=== PATIENT | male | born 1955 | race Caucasian/White ===

== ENCOUNTER 2017-09-09 13:39 | Inpatient (IN) ==
[~2017-09-09 13:39] MED LIST: *HR* Atropine Sulfate 1 MG/10 ML SYRINGE IV ONE
[2017-09-09] MEDS ORDERED: Aspirin 81 MG TAB.CHEW PO ONE (13:46)
[2017-09-09] MEDS ORDERED: *HR* Heparin 5,000 UNIT/ML VIAL IVP ONE (13:46)
[2017-09-09] MEDS ORDERED: 0.9 % Sodium Chloride 1,000 ML IVC ONE (13:46)
[2017-09-09] MEDS ORDERED: *HR* Heparin 5,000 UNIT/ML VIAL IVP PRN ×2 (13:46)
[2017-09-09] MEDS ORDERED: *HR* Ticagrelor 90 MG TABLET PO ONE (13:46)
--- NOTE | 2017-09-09 13:54 | Emergency Department Note ---
Disposition Clinical Impression: STEMI (ST elevation myocardial infarction) Qualifiers: Involved coronary artery: right coronary artery Qualified Code(s): I21.11 - ST elevation (STEMI) myocardial infarction involving right coronary artery Disposition: Admitted As Inpatient Condition: Serious Time of Disposition: 13:56 Chest Pain HPI - General Chief Complaint: ED Chest Pain Stated Complaint: CP Time Seen by Provider: 09/09/17 13:43 Source: patient Mode of arrival: EMS Limitations: no limitations Vital Signs Reviewed: Yes Nursing Notes Reviewed: Yes - History of Present Illness HPI Narrative: Patient presenting to the ED with a chief complaint of chest pain. No previous history of CA. Started this morning about 7 AM, went away started again about an hour ago. Located central chest radiating to his left arm. Prehospital EKG concerning for STEMI, but significant noise in appearance. Upon arrival, repeat EKG here does show an inferior CA STEMI alert called. Severity scale (1-10): 9 - Related Data Home Medications Medication Instructions Recorded Confirmed Losartan Potassium [Cozaar] 100 mg PO DAILY 09/09/17 09/09/17 Ranitidine HCl [Heartburn Relief] 150 mg PO BID 09/09/17 09/09/17 hydroCHLOROthiazide 25 mg PO DAILY 09/09/17 09/09/17 [Hydrochlorothiazide] Allergies Allergy/AdvReac Type Severity Reaction Status Date / Time No Known Allergies Allergy Verified 04/20/17 10:33 Constitutional: Denies: fever Cardiovascular: Reports: chest pain Respiratory: Reports: cough. Denies: dyspnea Gastrointestinal: Denies: vomiting Chest Pain PMH - Past Medical History Medical history: Reports: COPD, GERD, hyperlipidemia, hypertension Surgical history: Reports: other Psychiatric history: Reports: no psych history - Social History Smoking Status: Current every day smoker Alcohol use: Reports: none Drug use: Reports: none Physical Exam - General Limitations: no limitations General appearance: alert, in no apparent distress - Head Head exam: atraumatic, normocephalic, normal inspection - Eye Eye exam: Present: normal appearance, PERRL, EOMI - ENT ENT exam: normal exam, normal oropharynx, mucous membranes moist - Neck Neck exam: Present: normal inspection, full ROM, trachea midline - Chest Chest inspection: Present: normal inspection, symmetric chest wall rise - Respiratory Respiratory exam: Present: normal lung sounds bilaterally - Cardiovascular Cardiovascular exam: Present: regular rate, normal rhythm, normal heart sounds - Abdominal Exam Abdominal exam: Present: soft, Non-Tender. Absent: tenderness, distention, guarding, rebound, rigidity - Extremities Exam Extremities exam: Present: normal inspection, full ROM. Absent: tenderness, pedal edema - Neurological Exam Neurological exam: Present: alert, oriented X3 - Psychiatric Psychiatric exam: Present: normal affect, normal mood - Skin Skin exam: Present: warm, dry, intact, normal color Course Course Narrative: 62-year-old male presenting as a STEMI. Bedside ultrasound did reveal a decrease and wall motion inferiorly as well as LVH. EF seems to be intact. We will get a quick chest x-ray before anticoagulating. - Consultations Consultation #1: power generation engineer down to the emergency department. Taking patient to the Party Coordinator at this time. Heparin Brilinta aspirin given. Time: 13:52 Vital Signs Temperature 97.9 F 09/09/17 13:41 Pulse Rate 83 09/09/17 13:41 Respiratory Rate 16 09/09/17 13:41 Blood Pressure 144/89 09/09/17 13:41 O2 Sat by Pulse Oximetry 99 09/09/17 13:41 Temperature 97.9 F 09/09/17 13:41 Pulse Rate 74 09/09/17 14:10 Respiratory Rate 14 09/09/17 14:10 Blood Pressure 154/107 09/09/17 14:10 O2 Sat by Pulse Oximetry 97 09/09/17 14:10 Oxygen Delivery Oxygen Delivery Nasal Cannula Chest Pain - Medical Records Medical records reviewed: Yes I reviewed the patient's medical records. - Lab Data Lab results reviewed: Yes I reviewed the patient's lab results. Result diagrams: 09/09/17 13:43 09/09/17 13:43 Lab Results 09/09/17 09/09/17 09/09/17 Range/Units 13:43 13:43 13:43 WBC 12.8 H (4.3-11.1) K/mcL RBC 5.24 (4.19-5.50) M/mcL Hgb 16.3 (12.9-16.9) g/dL Hct 47.3 (37.5-50.1) % MCV 90.3 (83.0-100.0) fL MCH 31.1 (28.0-33.3) pg MCHC 34.5 (31.6-35.5) g/dL RDW 12.8 (11.5-14.5) % Plt Count 270 (140-400) K/mcL MPV 10.2 (9.4-12.4) fL Immature Gran % 0.3 (0-4) % Seg Neutrophils % 61.1 % Lymphocytes % 27.3 % Monocytes % 7.6 % Eosinophils % 2.5 % Basophils % 1.2 % Neutrophils # 7.8 (1.6-8.9) K/mcL Lymphocytes # 3.5 (0.6-4.6) K/mcL Monocytes # 1.0 (0.0-1.3) K/mcL Eosinophils # 0.3 (0.0-0.6) K/mcL Basophils # 0.2 (0.0-0.2) K/mcL PT 11.4 (9.4-12.1) Seconds INR 1.1 APTT 26.5 (26.0-36.0) Seconds Sodium 133 L (136-145) mEq/L Potassium 3.8 (3.5-4.5) mEq/L Chloride 93 L (98-109) mEq/L Carbon Dioxide 29 (19-29) mEq/L BUN 13 (8-26) mg/dL Creatinine 1.09 (0.72-1.25) mg/dL Est GFR ( Amer) > 60 (> 60) Est GFR (Non-Af Amer) > 60 (> 60) BUN/Creatinine Ratio 12 (6-26) Glucose 139 H (70-99) mg/dL Calculated Osmolality 278 L (280-300) Calcium 10.3 (8.6-10.8) mg/dL Magnesium 1.7 (1.6-2.6) mg/dL Troponin I (0-0.03) ng/mL Triglycerides 107 (< 150) mg/dL Cholesterol 205 H (< 200) mg/dL LDL Cholesterol, Calc 128 H (0-99) mg/dL VLDL Cholesterol, Calc 21 (< 31) mg/dL HDL Cholesterol 56 (40-59) mg/dL Cholesterol/HDL Ratio 3.7 (0-4.9) 09/09/17 Range/Units 13:43 WBC (4.3-11.1) K/mcL RBC (4.19-5.50) M/mcL Hgb (12.9-16.9) g/dL Hct (37.5-50.1) % MCV (83.0-100.0) fL MCH (28.0-33.3) pg MCHC (31.6-35.5) g/dL RDW (11.5-14.5) % Plt Count (140-400) K/mcL MPV (9.4-12.4) fL Immature Gran % (0-4) % Seg Neutrophils % % Lymphocytes % % Monocytes % % Eosinophils % % Basophils % % Neutrophils # (1.6-8.9) K/mcL Lymphocytes # (0.6-4.6) K/mcL Monocytes # (0.0-1.3) K/mcL Eosinophils # (0.0-0.6) K/mcL Basophils # (0.0-0.2) K/mcL PT (9.4-12.1) Seconds INR APTT (26.0-36.0) Seconds Sodium (136-145) mEq/L Potassium (3.5-4.5) mEq/L Chloride (98-109) mEq/L Carbon Dioxide (19-29) mEq/L BUN (8-26) mg/dL Creatinine (0.72-1.25) mg/dL Est GFR ( Amer) (> 60) Est GFR (Non-Af Amer) (> 60) BUN/Creatinine Ratio (6-26) Glucose (70-99) mg/dL Calculated Osmolality (280-300) Calcium (8.6-10.8) mg/dL Magnesium (1.6-2.6) mg/dL Troponin I 0.08 H* (0-0.03) ng/mL Triglycerides (< 150) mg/dL Cholesterol (< 200) mg/dL LDL Cholesterol, Calc (0-99) mg/dL VLDL Cholesterol, Calc (< 31) mg/dL HDL Cholesterol (40-59) mg/dL Cholesterol/HDL Ratio (0-4.9) - Radiology Data Radiology results reviewed: Yes I reviewed the patient's radiology results. - EKG Data EKG attestation: Yes I reviewed and interpreted this EKG. EKG results narrative: EKG shows sinus rhythm with first-degree AV block, rate 63, SC interval 247, QRS 101, QTc 386, ST segment elevation in leads II, III, and F aVF with reciprocal ST segment depression in V1, V2 and V3. This is significantly changed from previous. ACUTE CA. STEMI CALLED Attestation Statement - Attestation Attestation: I examined this patient and my medical decision-making was reviewed with the Resident Physician, Dr. Guzman. I agree with the documented findings, disposition and treatment plan as described except to the extent set forth below. Patient is a 62-year-old white male with history of hypertension and smoker who presents to the emergency department by EMS with complaints of substernal chest pain. Patient states pain began at about 7 AM and spontaneously resolved and then recurred an hour ago associated with some mild shortness of breath. Patient states the pain is radiating into his left arm. Patient denies any prior history of cardiac disease or CA. EMS transmitted an EKG minutes before they arrived to the ED with questionable ST changes in the inferior leads but difficult to ascertain as there was a lot of artifact on the tracing. On arrival to the ED EKG was repeated and show ST elevation in the inferior leads consistent with an inferior CA with reciprocal changes. STEMI alert was called on arrival. Patient is hemodynamically stable at this time. Patient did receive 4 baby aspirin in route to the ED. I agree with patient's physical exam findings as documented. Vital chest x-ray showed no acute process normal-sized mediastinum and cardiac silhouette. Dr. Chew who is on-call for interventional cardiology came to bedside to evaluate the patient. He agrees with proceeding with taking the patient to the Party Coordinator. IV heparin and Brilinta were started in the ED and patient was transported in stable condition to the Party Coordinator. Labs had been drawn and sent while in the ED. Patient will be admitted to the ICU from the Party Coordinator.
[2017-09-09 13:56] LABS: Basophils # 0.2 K/mcL (0.0-0.2); Basophils % 1.2 %; Eosinophils # 0.3 K/mcL (0.0-0.6); Eosinophils % 2.5 %; Hematocrit 47.3 % (37.5-50.1); Hemoglobin 16.3 g/dL (12.9-16.9); Immature Granulocytes % 0.3 % (0-4); Lymphocytes # 3.5 K/mcL (0.6-4.6); Lymphocytes % 27.3 %; Mean Corpuscular HGB Conc 34.5 g/dL (31.6-35.5); Mean Corpuscular Hemoglobin 31.1 pg (28.0-33.3); Mean Corpuscular Volume 90.3 fL (83.0-100.0); Mean Platelet Volume 10.2 fL (9.4-12.4); Monocytes % 7.6 %; Neutrophils # 7.8 K/mcL (1.6-8.9); Platelet Count 270 K/mcL (140-400); Red Blood Count 5.24 M/mcL (4.19-5.50); Red Cell Distribution Width 12.8 % (11.5-14.5); Segmented Neutrophils % 61.1 %
[2017-09-09 14:00] LABS: INR 1.1; Prothrombin Time 11.4 Seconds (9.4-12.1)
[2017-09-09] MEDS ORDERED: Heparin 25,000 UNIT/500 ML D5W 25,000 UNIT/500 ML MLS IVC SCH (14:00)
[2017-09-09] MEDS ORDERED: Heparin 1,000 UNITS/500 mL NS 500 ML ONE (14:01)
[2017-09-09] MEDS ORDERED: Nitroglycerin 1,000 MCG/10 ML VIAL IV ONE (14:01)
[2017-09-09] MEDS ORDERED: 0.9 % Sodium Chloride 1,000 ML ONE (14:01)
[2017-09-09] MEDS ORDERED: *HR* FentaNYL (PF) 100 MCG/2 ML VIAL ONE (14:01)
[2017-09-09] MEDS ORDERED: *HR* Midazolam HCl 2 MG/2 ML VIAL ONE (14:01)
[2017-09-09] MEDS ORDERED: *HR* Heparin 10,000 UNIT/10 ML VIAL ONE (14:01)
[2017-09-09 14:02] LABS: Activated Partial Thrombo Time 26.5 Seconds (26.0-36.0)
--- NOTE | 2017-09-09 14:07 | Cardiology History & Physical ---
Date of Encounter: 09/09/17 Time of Encounter: 14:05 Assessment and Plan (1) STEMI (ST elevation myocardial infarction) Current Visit: Yes Status: Acute The assessment and plan as outlined above was discussed with the patient and/or family members who expressed understanding and agreement. All questions were answered. Inferior STEMI, R/B/A d/w pt and he agrees to proceed. Loaded on Brilinta/ASA and Heparin Qualifiers: Involved coronary artery: right coronary artery Qualified Code(s): I21.11 - ST elevation (STEMI) myocardial infarction involving right coronary artery Code(s): I21.3 - ST elevation (STEMI) myocardial infarction of unspecified site SNOMED Code(s): 559988836 History of Present Illness Chief complaint: Chest Pain HPI: Mr. Centeno is a 62 year old male 62 YOM with h/o HTN, HLP presents with chest pain starting one hour ago unrelenting 6/10 retrosternal associated with SOB, EKG reveals Inferior ST elevations. R/B/A d/w pt and he agrees to proceed with [facility]. Denies orthopne, PND , presyncope or syncope. Past Med Surg Social Fam HX - Past Medical History Medical history: COPD, GERD, hyperlipidemia, hypertension Psychiatric history: no psych history - Past Surgical History Surgical History: other - Social History Smoking Status: Current every day smoker Smokeless Tobacco Status: No Alcohol use: none Drug use: none Medications and Allergies Losartan Potassium [Cozaar] 100 mg PO DAILY 09/09/17 [History] Ranitidine HCl [Heartburn Relief] 150 mg PO BID 09/09/17 [History] hydroCHLOROthiazide [Hydrochlorothiazide] 25 mg PO DAILY 09/09/17 [History] 3 Allergy/AdvReac Type Severity Reaction Status Date / Time No Known Allergies Allergy Verified 04/20/17 10:33 All Systems Review: A 10-system review of systems was performed and is negative for pertinent findings except as documented above in the HPI. Physical Examination Vital Signs, Last 4 Hours Temp Pulse Resp BP Pulse Ox 09/09/17 13:56 73 18 149/95 99 09/09/17 13:41 97.9 F 83 16 144/89 99 General: Conversant, No Apparent Distress HEENT: Atraumatic, Normocephaly, Mucus Membranes Moist Neck: No JVD, Normal carotid pulses Cardiac: Reg Rate and Rhythm, Normal S1 and S2, No Murmur Lungs: Normal Breath Sounds, No Wheeze, Rales, Rhonchi Neuro: Alert and responsive, No focal deficits noted Abdomen: Soft, Non-Tender Skin: No rashes noted on visualized skin Musculoskeletal: No Chest Wall Tenderness Extremities: No Clubbing, No Cyanosis, No Edema, Normal Pulses Results 09/09/17 13:43 Lab Results 09/09/17 09/09/17 13:43 13:43 WBC 12.8 H Hgb 16.3 Hct 47.3 Plt Count 270 INR 1.1
[2017-09-09 14:10] LABS: BUN/Creatinine Ratio 12 (6-26); Blood Urea Nitrogen 13 mg/dL (8-26); Calcium 10.3 mg/dL (8.6-10.8); Carbon Dioxide 29 mEq/L (19-29); Chloride 93 mEq/L (98-109); Chol/HDL Ratio 3.7 (0-4.9); Cholesterol 205 mg/dL (< 200); Glucose 139 mg/dL (70-99); HDL Cholesterol 56 mg/dL (40-59); LDL Cholesterol,Calculated 128 mg/dL (0-99); Magnesium 1.7 mg/dL (1.6-2.6); Osmolality,Calculated 278 (280-300); Potassium 3.8 mEq/L (3.5-4.5); Sodium 133 mEq/L (136-145); Triglycerides 107 mg/dL (< 150); eGFR For African Americans > 60 (> 60); eGFR For Non-African Americans > 60 (> 60)
[2017-09-09] MEDS ORDERED: Tirofiban 12.5 MG/250ML 12.5 MG/250 ML BAG ONE (14:26)
[2017-09-09] MEDS ORDERED: Tirofiban 12.5 MG/250ML 12.5 MG/250 ML BAG IVC SCH (15:30)
[2017-09-09] MEDS ORDERED: *HR* Atropine Sulfate 1 MG/10 ML SYRINGE ONE (18:04)
[2017-09-10] MEDS ORDERED: *HR* Morphine 2 MG/ML SYRINGE IVP PRN (00:10)
[2017-09-10] MEDS ORDERED: Nitroglycerin 0.2 MG PATCH.TD24 TD SCH ×2 (00:30→07:30)
[2017-09-10 03:46] LABS: Basophils # 0.1 K/mcL (0.0-0.2); Basophils % 0.4 %; Eosinophils % 0.2 %; Hematocrit 43.6 % (37.5-50.1); Hemoglobin 14.8 g/dL (12.9-16.9); Immature Granulocytes % 0.5 % (0-4); Lymphocytes # 1.6 K/mcL (0.6-4.6); Lymphocytes % 9.7 %; Mean Corpuscular HGB Conc 33.9 g/dL (31.6-35.5); Mean Corpuscular Hemoglobin 30.5 pg (28.0-33.3); Mean Corpuscular Volume 89.7 fL (83.0-100.0); Mean Platelet Volume 10.4 fL (9.4-12.4); Monocytes # 1.3 K/mcL (0.0-1.3); Monocytes % 7.9 %; Neutrophils # 13.1 K/mcL (1.6-8.9); Platelet Count 257 K/mcL (140-400); Red Blood Count 4.86 M/mcL (4.19-5.50); Red Cell Distribution Width 12.9 % (11.5-14.5); Segmented Neutrophils % 81.3 %
[2017-09-10 03:54] LABS: Hemoglobin A1C 5.2 %
[2017-09-10 04:00] LABS: Alanine Aminotransferase 55 Units/L (0-55); Albumin 3.4 g/dL (3.5-5.0); Alkaline Phosphatase 109 Units/L (38-126); Aspartate Amino Transferase 275 Units/L (5-34); BUN/Creatinine Ratio 17 (6-26); Bilirubin,Direct 0.3 mg/dL (0.0-0.5); Bilirubin,Indirect 0.4 mg/dL (0.0-1.2); Bilirubin,Total 0.7 mg/dL (0.2-1.2); Blood Urea Nitrogen 14 mg/dL (8-26); Calcium 9.3 mg/dL (8.6-10.8); Carbon Dioxide 28 mEq/L (19-29); Chloride 97 mEq/L (98-109); Globulin 3.4 g/dL (2.4-3.5); Glucose 111 mg/dL (70-99); Magnesium 1.6 mg/dL (1.6-2.6); Osmolality,Calculated 273 (280-300); Potassium 4.1 mEq/L (3.5-4.5); Sodium 131 mEq/L (136-145); Total Protein 6.8 g/dL (6.0-8.3); eGFR For African Americans > 60 (> 60); eGFR For Non-African Americans > 60 (> 60)
[2017-09-10] MEDS: *HR* Ticagrelor 90 MG TABLET PO SCH ×3 (07:52→19:46)
[2017-09-10] MEDS ORDERED: Furosemide 20 MG/2 ML VIAL IVP ONE (08:06)
[2017-09-10] MEDS ORDERED: Aspirin 81 MG TAB.CHEW PO SCH (09:00)
[2017-09-10] MEDS ORDERED: Levalbuterol Neb 1.25 MG/3 ML IH SCH (10:00)
--- NOTE | 2017-09-10 10:41 | Cardiology Progress Note ---
Date of Encounter: 09/10/17 Time of Encounter: 09:00 Assessment and Plan (1) STEMI (ST elevation myocardial infarction) Current Visit: Yes Status: Acute Per Cardiology: Trop 0.08. Status post emergent left heart catheterization with PCI and drug- eluting stent to right PDA 100% lesion; has nonobstructive proximal LAD 25% and mid LAD 25% lesions. EF on LHC 65%. Echo pending. Has Cardiac rehab c/s. On aspirin, statin, Brilinta (copay card provided), TASNEEM inhibitor. Will add low dose BB-- HR and BP stable. Plan for transfer to floor today, possible DC tomorrow. Qualifiers: Involved coronary artery: right coronary artery Qualified Code(s): I21.11 - ST elevation (STEMI) myocardial infarction involving right coronary artery (2) Nicotine abuse Current Visit: Yes Status: Chronic Per Cardiology: History of one pack per day for 46 years, currently smoking a half a pack per day. Smoking cessation counseling for 3-5 minutes provided. Patient is not interested in smoking cessation aids at this time. Discussion w patient/family: The assessment and plan as outlined above was discussed with the patient who expressed understanding and agreement. All questions were answered. Thank you for involving us in the care of your patient. Please call with any questions. Subjective Principal diagnosis: STEMI Interval history: Patient denies CP. Reports mild SOB at rest-- does not utilize home O2. He reports no known history of COPD. Continues to smoke about half a pack per day, has smoked about one pack per day for 46 years. Denies any R groin concerns other than mild tenderness. Objective Vital Signs, Last 4 Hours Temp Pulse Resp BP Pulse Ox 09/10/17 10:00 77 26 127/85 94 09/10/17 09:00 76 24 114/81 96 09/10/17 08:00 62 22 110/69 96 09/10/17 07:42 98.1 F General: Conversant, No Apparent Distress HEENT: Atraumatic, Normocephaly, Mucus Membranes Moist Neck: No JVD, Normal carotid pulses Cardiac: Reg Rate and Rhythm, Normal S1 and S2, No Murmur Lungs: Normal Breath Sounds, No Wheeze, Rales, Rhonchi Neuro: Alert and responsive, No focal deficits noted Abdomen: Soft, Non-Tender Skin: No rashes noted on visualized skin, Other (Right groin site trying intact , no hematoma, no ecchymosis, no bleeding, right posterior tibial and dorsalis pedis pulses 2+ palpable) Musculoskeletal: No Chest Wall Tenderness Extremities: No Clubbing, No Cyanosis, No Edema, Normal Pulses Results 09/10/17 03:24 09/10/17 03:24 Lab Results Laboratory Tests 09/09/17 13:43 Troponin I 0.08 H* ITS Impressions Chest X-Ray 09/09/17 13:46 IMPRESSION: No acute cardiopulmonary disease. D/ / Biju Araujo MD / Biju Araujo MD Interpreting Provider: Biju Araujo MD Active Medications Aspirin (Aspirin) 81 mg PO DAILY [facility] Stop: 03/12/18 09:01 Last Admin: 09/10/17 07:52 Dose: 81 mg Atorvastatin Calcium (Lipitor) 40 mg PO HS [facility] Stop: 03/11/18 21:01 Last Admin: 09/09/17 20:32 Dose: 40 mg Levalbuterol HCl (Xopenex) 1.25 mg IH [id number] [facility] Stop: 03/12/18 10:01 Lisinopril (Zestril) 2.5 mg PO DAILY [facility] Stop: 03/12/18 09:01 Last Admin: 09/10/17 07:52 Dose: 2.5 mg Morphine Sulfate (Morphine Sulfate) 1 mg IVP Q2H PRN PRN Reason: Pain Stop: 03/12/18 00:11 Last Admin: 09/10/17 00:33 Dose: 1 mg Nitroglycerin (Nitroglycerin) 0.2 mg TD 0030 [facility] Stop: 03/12/18 00:31 Last Admin: 09/10/17 02:24 Dose: 0.2 mg Ticagrelor (Brilinta) 90 mg PO BID [facility] Last Admin: 09/10/17 08:14 Dose: Not Given - Imaging and Cardiology Echo: pending Cardiac cath: report reviewed - EKG Interpretation EKG results cardiology: other (Tele shows avg HR 75, SR, few episodes on NSVT) - VTE Reasons for not Prescribing Prophylaxis: Not indicated-Anticoagulated or INR therapeutic Consult Discharge Plan - Plan Referrals: Kaila Arciniega, [Primary Care Provider] -
[2017-09-10] MEDS ORDERED: Acetaminophen 325 MG TABLET PO PRN ×2 (10:59→13:54)
[2017-09-10] MEDS ORDERED: Magnesium Sulfate 2 GM in D5% in Water 100 ML IVPB ONE (11:00)
[2017-09-10] MEDS ORDERED: Nitroglycerin 0.4 MG TAB.SUBL SL PRN (13:54)
[2017-09-10] MEDS: Levalbuterol Neb 1.25 MG/3 ML IH SCH ×2 (16:36→21:22)
--- NOTE | 2017-09-10 17:19 | Electrocardiograph Report ---
[address] [place] [address] Test Date: 2017-09-10 Pat Name: Jaret Centeno Department: 109 Room: 06 Gender: M Patient Registration Supervisor: MARY : 1955 Requested By: Jeevan Chew Order Number: [id number] Reading MD: Lizabeth Larson Measurements Intervals Mobile Rate: 67 P: 71 NV: 207 QRS: 59 QRSD: 85 T: -65 QT: 377 QTc: 393 Interpretive Statements SINUS RHYTHM WITH OCCASIONAL VENTRICULAR PREMATURE COMPLEXES ANTEROSEPTAL MYOCARDIAL INFARCTION, OF INDETERMINATE AGE MODERATE T-WAVE ABNORMALITY, CONSIDER INFERIOR ISCHEMIA Electronically Signed On 09-10-2017 17:18:02 EDT by Lizabeth Larson
--- NOTE | 2017-09-10 17:22 | Electrocardiograph Report ---
[address] [place], [place] [address] Test Date: 2017-09-09 Pat Name: Jaret Centeno Department: 102 Room: [facility] Gender: M Feeder/Folder: Pari : 1955 Requested By: Miller Guzman Order Number: [id number] Reading MD: Lizabeth Larson Measurements Intervals [place] Rate: 63 P: 68 TN: 247 QRS: 71 QRSD: 101 T: 87 QT: 378 QTc: 386 Interpretive Statements SINUS RHYTHM WITH FIRST DEGREE AV BLOCK BLOCKED PAC ANTEROSEPTAL MYOCARDIAL INFARCTION OF INDETERMINATE AGE ST ELEVATION, CONSIDER INFERIOR INJURY ACUTE IL Electronically Signed On 09-10-2017 17:20:55 EDT by Lizabeth Larson
[2017-09-10] MEDS: Famotidine 20 MG TABLET PO SCH (19:46)
[2017-09-11] MEDS: Levalbuterol Neb 1.25 MG/3 ML IH SCH ×3 (03:46→15:09)
[2017-09-11] MEDS: *HR* Ticagrelor 90 MG TABLET PO SCH ×2 (08:35→19:30)
[2017-09-11] MEDS: Famotidine 20 MG TABLET PO SCH ×2 (08:36→19:30)
[2017-09-11] MEDS: Aspirin 81 MG TAB.CHEW PO SCH (08:36)
--- NOTE | 2017-09-11 14:24 | Cardiology Progress Note ---
Date of Encounter: 09/11/17 Time of Encounter: 09:00 Assessment and Plan (1) STEMI (ST elevation myocardial infarction) Current Visit: Yes Status: Acute Per Cardiology: Peak troponin greater than 50. Status post emergent left heart catheterization with PCI and drug-eluting stent to right PDA 100% lesion; has nonobstructive proximal LAD 25% and mid LAD 25% lesions. Echo shows EF preserved at 60%, mild diastolic dysfunction, mild MR, no pulmonary hypertension. On aspirin, statin, Brilinta, BB, ARB. Chest pain-free. Qualifiers: Involved coronary artery: right coronary artery Qualified Code(s): I21.11 - ST elevation (STEMI) myocardial infarction involving right coronary artery (2) SOB (shortness of breath) Current Visit: Yes Status: Acute Per Cardiology: BNP only 18. Euvolemic on exam. Patient started on Xopenex nebulizers on admission. History of nicotine abuse. Suspect undiagnosed COPD. Patient reports continues to experience worsening shortness of breath at rest. Reports cough with whitish sputum production. White count noted to be elevated at 16. Afebrile. Previous CXR showed no acute pulmonary process. Discussed with Dr. Ferguson, will consult pulmonology for further evaluation and recommendations. (3) Nicotine abuse Current Visit: Yes Status: Chronic Per Cardiology: History of one pack per day for 46 years, currently smoking a half a pack per day. Smoking cessation counseling for 3-5 minutes provided. Patient is not interested in smoking cessation aids at this time. Discussion w patient/family: The assessment and plan as outlined above was discussed with the patient who expressed understanding and agreement. All questions were answered. Thank you for involving us in the care of your patient. Please call with any questions. Subjective Principal diagnosis: STEMI Interval history: Denies any chest pain. He reports he continues to experience shortness of breath at rest. Additionally he reports development of cough with mainly whitish sputum. He denies any fever or chills. Reports history of intermittent cough. Again significant history of nicotine abuse. He denies any known history of COPD and does not utilize home oxygen. Reports nebulizers improving his symptoms. Denies any other concerns or complaints today. Objective Vital Signs, Last 4 Hours Temp Pulse Resp BP Pulse Ox 09/11/17 11:11 94 09/11/17 11:10 97.8 F 85 18 136/96 96 General: Conversant, No Apparent Distress Cardiac: Reg Rate and Rhythm, Normal S1 and S2, No Murmur Lungs: Other (Scattered rhonchi throughout, expiratory wheezes noted bilateral bases, sounds to right base) Neuro: Alert and responsive, No focal deficits noted Skin: No rashes noted on visualized skin, Other (Right groin site for any intact , no hematoma, no bleeding, no ecchymosis) Extremities: No Edema Results 09/10/17 03:24 09/10/17 03:24 Laboratory Tests 09/09/17 09/09/17 09/09/17 13:43 13:43 15:46 Troponin I 0.08 H* B-Natriuretic Peptide 18 LDL Cholesterol, Calc 128 H TSH 09/10/17 09/10/17 03:24 10:59 Troponin I > 50.00 H* B-Natriuretic Peptide LDL Cholesterol, Calc TSH 0.980 ITS Impressions Chest X-Ray 09/09/17 13:46 IMPRESSION: No acute cardiopulmonary disease. D/ / Biju Araujo MD / Biju Araujo MD Interpreting Provider: Biju Araujo MD Echocardiogram 09/10/17 15:18 Impressions: LVEF 60%. Normal LV systolic function without regional wall motion abnormalities. Mild left ventricular diastolic dysfunction. Normal right ventricular structure and function. Mild mitral regurgitation. No pulmonary hypertension. Left Ventricular Wall Motion: Rest Echo Findings All wall segments showed normal motion. Findings: Study Quality * Technically adequate study. ECG Findings * Normal sinus rhythm, sinus arrhythmia and PACs. Left Ventricle * LVEF 60%. * Mild left ventricular diastolic dysfunction. * Normal size and LV wall thickness. Right Ventricle * Normal right ventricular structure and function. Left Atrium * Normal left atrial size. Right Atrium * Normal right atrial size. Aortic Valve * Aortic valve not well visualized. * No aortic regurgitation. * No aortic stenosis. Mitral Valve * Normal mitral valve structure. * No mitral stenosis. * Mild mitral regurgitation. Tricuspid Valve * Tricuspid valve not well visualized. * No tricuspid regurgitation. * Estimated RA pressure is 3 mmHg. Pulmonic Valve * Pulmonic valve is not well visualized. * No pulmonic stenosis. * No pulmonic regurgitation. Pulmonary Artery * Pulmonary artery not well visualized. Aorta * Normally sized aortic root. Pericardium * There is no pericardial effusion present. Interatrial Septum * No evidence of PFO by color Doppler. IVC * Normal IVC dimensions and inspiratory collapse. Active Medications Acetaminophen (Tylenol) 650 mg PO Q6HR PRN PRN Reason: Headache Stop: 03/12/18 11:00 Aspirin (Aspirin) 81 mg PO DAILY [facility] Stop: 03/12/18 09:01 Last Admin: 09/11/17 08:36 Dose: 81 mg Atorvastatin Calcium (Lipitor) 40 mg PO HS [facility] Stop: 03/11/18 21:01 Last Admin: 09/10/17 19:46 Dose: 40 mg Famotidine (Pepcid) 20 mg PO BID [facility] Stop: 03/12/18 21:01 Last Admin: 09/11/17 08:36 Dose: 20 mg Levalbuterol HCl (Xopenex) 1.25 mg IH [id number] [facility] Stop: 03/12/18 10:01 Last Admin: 09/11/17 10:13 Dose: 1.25 mg Losartan Potassium (Cozaar) 100 mg PO DAILY [facility] Stop: 03/13/18 09:01 Last Admin: 09/11/17 08:36 Dose: 100 mg Metoprolol Tartrate (Lopressor) 12.5 mg PO BID [facility] Stop: 03/12/18 21:01 Last Admin: 09/11/17 08:36 Dose: 12.5 mg Nitroglycerin (Nitroglycerin) 0.4 mg SL Q5MIN PRN PRN Reason: Chest Pain Stop: 03/12/18 13:55 Ticagrelor (Brilinta) 90 mg PO BID [facility] Last Admin: 09/11/17 08:35 Dose: 90 mg - Imaging and Cardiology Echo: report reviewed Cardiac cath: report reviewed - EKG Interpretation EKG results cardiology: other (Telemetry reviewed and shows sinus rhythm with average heart rate 91, occasional PVCs, no events noted) - VTE Reasons for not Prescribing Prophylaxis: Not indicated-Anticoagulated or INR therapeutic Documentation of Mechanical Device: Intermittent pneumatic compression device Consult Discharge Plan - Plan Referrals: Martha Benton DO [Resident] - 09/17/17 3:00 pm
[2017-09-11] MEDS ORDERED: Azithromycin 250 MG TABLET PO ONE (16:22)
--- NOTE | 2017-09-11 16:30 | Pulmonology Consult Note ---
<Michael Bruno - Last Filed: 09/11/17 16:39> Date of Encounter: 09/11/17 Time of Encounter: 16:28 Assessment and Plan (1) Acute exacerbation of chronic obstructive pulmonary disease (COPD) Current Visit: Yes Status: Acute Patient has never been formally diagnosed with COPD but given his smoking history and symptomatology likely has undiagnosed COPD with current exacerbation. Exacerbation is likely related to recent MT. We will start the patient on oral prednisone 40 mg daily and azithromycin 500 mg on day 1. Agree with short acting bronchodilators, will change patient from Xopenex to albuterol. We will also start long-acting antimuscarinic, Spiriva 18 g 1 puff daily. Also, given patient is now having yellow sputum we will also place an order for a sputum culture. Recommendations on discharge: Prednisone 40 mg daily for a total of 5 days Azithromycin 500 mg on day 1 and then 250 mg daily for 4 days for a total of 5 days of treatment. Albuterol inhaler 1 puff every 4 hours as needed for shortness of breath Spiriva 18 g inhaled, 1 puff daily We recommend the patient be set up with outpatient PFTs in 4 weeks after completing treatment. Follow-up with [facility] as an outpatient in 6-8 weeks. Thank you for consulting [facility]. Please call with any questions. (2) STEMI (ST elevation myocardial infarction) Current Visit: Yes Status: Acute Status post PCI to the LAD with drug-eluting stent. Likely contributing to the patient's COPD exacerbation as discussed above. Further management per the primary cardiology service. Qualifiers: Involved coronary artery: right coronary artery Qualified Code(s): I21.11 - ST elevation (STEMI) myocardial infarction involving right coronary artery History of Present Illness Consult date: 09/11/17 Requesting physician: Tereso Beckman Reason for consult: COPD Chief complaint: Dyspnea History of present illness: Patient is a 62-year-old male who initially presented to emergency department with chest pain. He was found to have an ST elevation myocardial infarction and underwent left heart catheterization with stent to the LAD. The pulmonology service was asked to see the patient due to worsening shortness of breath and cough. Patient reports that he has felt short of breath since admission. He states that he has felt short of breath intermittently prior to this. He states that this is worse since admission. He also reports increased sputum production in his sputum was initially white and is now become yellow. He denies fever, chills, hemoptysis, weight loss. Patient reports smoking since he was 16 years old. He states at most he smoked a pack and a half a day. Currently he smokes approximately half a pack of cigarettes daily. 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 He denies any history of tuberculosis exposure. Past Med Surg Social Fam HX - Past Medical History Medical history: COPD, GERD, hyperlipidemia, hypertension Psychiatric history: no psych history - Past Surgical History Surgical History: other - Social History Smoking Status: Current every day smoker Packs per day: 0.5 Smokeless Tobacco Status: No Alcohol use: none Drug use: none - Family History Mother Hx Family Respiratory Disorders: Yes Medications and Allergies Losartan Potassium [Cozaar] 100 mg PO DAILY 09/09/17 [History] Ranitidine HCl [Heartburn Relief] 150 mg PO BID 09/09/17 [History] hydroCHLOROthiazide [Hydrochlorothiazide] 25 mg PO DAILY 09/09/17 [History] 3 Allergy/AdvReac Type Severity Reaction Status Date / Time No Known Allergies Allergy Verified 04/20/17 10:33 All Systems: A 10-system review of systems was performed and is negative for pertinent findings except as documented above in the HPI. - Constitutional Constitutional: no chills, no fever(s) - EENT Nose, mouth and throat: no sore throat - Cardiovascular Cardiovascular: dyspnea, dyspnea on exertion, no chest pain - Respiratory Respiratory: cough, dyspnea on exertion, chest congestion, excessive phlegm production, change in phlegm color, no hemoptysis, no wheezing - Gastrointestinal Gastrointestinal: no nausea, no vomiting - Neurological Neurological: no numbness, no syncope, no tingling Physical Examination Vital Signs: Vital Signs, Last 4 Hours Temp Pulse Resp BP Pulse Ox 09/11/17 15:34 97.9 F 94 18 132/83 94 09/11/17 15:10 18 95 General appearance: no acute distress ENT: oropharynx moist Effort: normal Auscultation: bilateral: wheezes Cardiovascular: regular rate and rhythm Extremities: no cyanosis, no edema, no clubbing normal mental status, non-focal exam Results - Laboratory Findings CBC and BMP: 09/10/17 03:24 09/10/17 03:24 PT/INR, D-dimer PT 11.4 Seconds (9.4-12.1) 09/09/17 13:43 Abnormal lab findings: Abnormal lab results WBC 16.1 K/mcL (4.3-11.1) H 09/10/17 03:24 Neutrophils # 13.1 K/mcL (1.6-8.9) H 09/10/17 03:24 Sodium 131 mEq/L (136-145) L 09/10/17 03:24 Chloride 97 mEq/L (98-109) L 09/10/17 03:24 Glucose 111 mg/dL (70-99) H 09/10/17 03:24 Calculated Osmolality 273 (280-300) L 09/10/17 03:24 AST 275 Units/L (5-34) H 09/10/17 03:24 Troponin I > 50.00 ng/mL (0-0.03) H* 09/10/17 10:59 Albumin 3.4 g/dL (3.5-5.0) L 09/10/17 03:24 Albumin/Globulin Ratio 1.0 (1.1-2.2) L 09/10/17 03:24 Cholesterol 205 mg/dL (< 200) H 09/09/17 13:43 LDL Cholesterol, Calc 128 mg/dL (0-99) H 09/09/17 13:43 - Clinical Findings Intake & Output: Intake & Output 09/11/17 09/11/17 09/11/17 07:59 15:59 23:59 Intake Total 720 / 720 Output Total 200 / 200 825 / 825 Balance -200 / -200 -105 / -105 Weight 85 kg Consult Discharge Plan - Plan Referrals: Martha Benton DO [Resident] - 09/17/17 3:00 pm <Olman Mann - Last Filed: 09/11/17 18:33> Date of Encounter: 09/11/17 All Systems: A 10-system review of systems was performed and is negative for pertinent findings except as documented above in the HPI. Physical Examination Vital Signs: Vital Signs, Last 4 Hours Temp Pulse Resp BP Pulse Ox 09/11/17 15:34 97.9 F 94 18 132/83 94 09/11/17 15:10 18 95 Results - Laboratory Findings CBC and BMP: 09/10/17 03:24 09/10/17 03:24 PT/INR, D-dimer PT 11.4 Seconds (9.4-12.1) 09/09/17 13:43 Abnormal lab findings: Abnormal lab results WBC 16.1 K/mcL (4.3-11.1) H 09/10/17 03:24 Neutrophils # 13.1 K/mcL (1.6-8.9) H 09/10/17 03:24 Sodium 131 mEq/L (136-145) L 09/10/17 03:24 Chloride 97 mEq/L (98-109) L 09/10/17 03:24 Glucose 111 mg/dL (70-99) H 09/10/17 03:24 Calculated Osmolality 273 (280-300) L 09/10/17 03:24 AST 275 Units/L (5-34) H 09/10/17 03:24 Troponin I > 50.00 ng/mL (0-0.03) H* 09/10/17 10:59 Albumin 3.4 g/dL (3.5-5.0) L 09/10/17 03:24 Albumin/Globulin Ratio 1.0 (1.1-2.2) L 09/10/17 03:24 Cholesterol 205 mg/dL (< 200) H 09/09/17 13:43 LDL Cholesterol, Calc 128 mg/dL (0-99) H 09/09/17 13:43 - Clinical Findings Intake & Output: Intake & Output 09/11/17 09/11/17 09/11/17 07:59 15:59 23:59 Intake Total 720 / 720 240 / 240 Output Total 200 / 200 825 / 825 Balance -200 / -200 -105 / -105 240 / 240 Weight 85 kg - Attending Attestation I saw the patient with the resident agree with History and Physical exam findings. Labs and Radiology were reviewed Acute COPD Exacerbation : During the hospital stay complicated by STEMI clinical symptoms point towards to a COPD exacerbation which probably started during the hospitalization . Will start on Z santos and steroid burst . To send home on Albuterol inhaler and spiriva . To follow up with [facility] in 6 -8 weeks . To get PFT'S. Before discharge ascertain exercise O2 needs . Spent most of the visit time in counseling smoking cessation . Patient is contemplating to stop smoking.
[2017-09-11] MEDS: predniSONE 20 MG TABLET PO SCH (17:01)
--- NOTE | 2017-09-11 17:07 | Event Note ---
Date of Encounter: 09/11/17 Time of Encounter: 17:10 - Cardiology Event Note Patient discussed and reviewed with pulmonology, appreciate recommendations. Will reevaluate in the morning with possible discharge tomorrow.
[2017-09-11] MEDS: Tiotropium 18 MCG inhalation IH SCH (19:35)
[2017-09-11] MEDS: Albuterol 2.5 MG/3 ML NEBULIZER IH SCH ×2 (19:35→19:50)
[2017-09-12] MEDS: Albuterol 2.5 MG/3 ML NEBULIZER IH SCH ×4 (00:02→11:28)
[2017-09-12] MEDS: Tiotropium 18 MCG inhalation IH SCH (08:06)
--- NOTE | 2017-09-12 08:18 | Electrocardiograph Report ---
[place] [address] Test Date: 2017-09-09 Pat Name: Jaret Centeno Department: 109 Room: 2N09 Gender: M Bear Keeper: MARÍA : 1955 Requested By: Jeevan Chew Order Number: [id number] Reading MD: Lizabeth Larson Measurements Intervals [place] Rate: 71 P: 76 VT: 212 QRS: 66 QRSD: 87 T: 75 QT: 368 QTc: 391 Interpretive Statements SINUS RHYTHM WITH SINUS ARRHYTHMIA WITH FIRST DEGREE AV BLOCK ANTEROSEPTAL MYOCARDIAL INFARCTION, OF INDETERMINATE AGE Electronically Signed On 09-12-2017 8:16:45 EDT by Lizabeth Larson
[2017-09-12 08:20] VITALS: BP 132/78
[2017-09-12] MEDS: predniSONE 20 MG TABLET PO SCH (08:20)
[2017-09-12] MEDS: *HR* Ticagrelor 90 MG TABLET PO SCH (08:20)
[2017-09-12] MEDS: Famotidine 20 MG TABLET PO SCH (08:20)
[2017-09-12] MEDS: Aspirin 81 MG TAB.CHEW PO SCH (08:21)
--- NOTE | 2017-09-12 10:08 | Discharge Summary ---
Date of Encounter: 09/12/17 Time of Encounter: 10:00 - Discharge Diagnosis (1) STEMI (ST elevation myocardial infarction) Priority: Primary Status: Acute Comments: Presented with STEMI with troponin greater than 50. Qualifiers: Involved coronary artery: right coronary artery Qualified Code(s): I21.11 - ST elevation (STEMI) myocardial infarction involving right coronary artery (2) Acute exacerbation of chronic obstructive pulmonary disease (COPD) Priority: Secondary Status: Acute Comments: Seen by pulmonology with acute COPD exacerbation and started on antibiotics, steroids, and inhalers. (3) Nicotine abuse Priority: Secondary Status: Chronic - Discharge Medications Prescriptions: Albuterol Sulfate [Albuterol Inhaler] 0 puff IH Q4HR PRN #1 hfa.aer.ad PRN Reason: Shortness Of Breath Nitroglycerin 0.4 mg SL Q5MIN PRN #30 tab.subl PRN Reason: Chest Pain Atorvastatin [Lipitor] 40 mg PO HS #30 tablet Azithromycin [Zithromax] 250 mg PO Q24H #3 tablet Metoprolol [Lopressor] 12.5 mg PO BID #60 tablet predniSONE [PredniSONE] 40 mg PO DAILY #3 tablet Ticagrelor [Brilinta] 90 mg PO BID #60 tablet Tiotropium [Spiriva] 18 mcg IH DAILYR #1 inh Home Medications: Losartan Potassium [Cozaar] 100 mg PO DAILY 09/09/17 [History] Ranitidine HCl [Heartburn Relief] 150 mg PO BID 09/09/17 [History] Albuterol Sulfate [Albuterol Inhaler] 0 puff IH Q4HR PRN #1 hfa.aer.ad 09/12/17 [Rx] Aspirin 81 mg PO DAILY tab.chew 09/12/17 [Rx] Atorvastatin [Lipitor] 40 mg PO HS #30 tablet 09/12/17 [Rx] Azithromycin [Zithromax] 250 mg PO Q24H #3 tablet 09/12/17 [Rx] Metoprolol [Lopressor] 12.5 mg PO BID #60 tablet 09/12/17 [Rx] Nitroglycerin 0.4 mg SL Q5MIN PRN #30 tab.subl 09/12/17 [Rx] Ticagrelor [Brilinta] 90 mg PO BID #60 tablet 09/12/17 [Rx] Tiotropium [Spiriva] 18 mcg IH DAILYR #1 inh 09/12/17 [Rx] predniSONE [PredniSONE] 40 mg PO DAILY #3 tablet 09/12/17 [Rx] Allergies/Adverse Reactions: 3 Allergy/AdvReac Type Severity Reaction Status Date / Time No Known Allergies Allergy Verified 04/20/17 10:33 Procedures/tests Complete & Pending: Procedures Performed prior 72 hours Category Date Time Status EV echocardiogram Routine Y 09/10/17 15:18 Completed Date of admission: 09/09/17 15:18 Primary care physician: Kaila Arciniega DO Consults: 09/11/17 14:19 Consult to Pulmonology [CONS] Routine Consulting Provider: [facility] Reason for Consult: SOB, productive cough, elevated WBC, suspect undiagnosed COPD, eval for possible exac and treatment recs, discussed Dr. Brisa Morales Time Notified: 14:00 Call Completed: Yes Discharging clinician: Tereso Beckman Anticipated date of discharge: 09/12/17 - Patient Status Disposition: Home, Self-Care Condition: Fair Functional capacity at discharge: independent ambulation Overall status at discharge: patient is progressing back to baseline - Discharge Instructions Instructions: Myocardial Infarction (DC), How to Stop Smoking (DC) Follow Up With: Martha Benton DO [Resident] - 09/17/17 3:00 pm Olman Mann MD [Partnered Physician] - (in 4-6 weeks) Additional Instructions: RISK FACTORS: STOP SMOKING: If you smoke, STOP. Smoking or tobacco use significantly increases your risk of heart disease because nicotine causes the arteries to narrow or constrict. It also causes fats to stick to the artery. Your chances of having a heart attack are greatly increased if you continue to smoke. For more information, call the education line for smoking cessation 9-266-SXUXMSZ EAT A LOW FAT/CHOLESTEROL/SODIUM DIET: This diet may help reduce your chances of having a heart attack. LIFTING: Avoid lifting anything more than 10 pounds for 5-7 days Prior to straining, laughing, sneezing and/or coughing, apply manual pressure directly over insertion site. ACTIVITY: You may walk or climb stairs as tolerated You can resume sexual activity as tolerated In general, you are encouraged to engage in a minimum of 30 minutes or more of moderate intensity physical activity, such as brisk walking, daily or at least 3 -4 times weekly BATHING Do not submerge the site into water (bath tub, hot tub, swimming pool) for 1 week. This can be a source for infection into the blood stream. You may shower after 24 hours SITE CARE: After 24 hours, you may remove the dressing and leave the site open to air. Keep the site clean and dry. Clean gently and pat dry. You can expect bruising and tenderness that gradually resolve within a week or two. Return to work as instructed per your physician Resume driving as instructed per physician Keep all scheduled follow up appointments Resume medications as instructed IMPORTANT: If prescribed a Platelet Aggregation Inhibitor such as, Plavix, Brilinta or Effient: Duration of therapy is minimum one year These medications are often used in combination with Aspirin in prevention of future heart attacks Never discontinue unless consult with your Family Reunification Specialist STROKE (CVA) Risk factors for a stroke are: Age, cigarette smoking, diabetes, excessive alcohol consumption, family history, high blood pressure, overweight, physical inactivity, prior stroke, heart attack, diagnosis of carotid artery stenosis or other artery disease. Warning signs: Sudden numbness or weakness of the face, arm or leg; especially on one side of the body, sudden confusion, trouble speaking or understanding, sudden trouble seeing in one or both eyes, sudden trouble walking, dizziness, loss of balance or coordination, sudden severe headache with no cause. Call 911 or go to the Emergency Room. CONGESTIVE HEART FAILURE: If you have been diagnosed with Congestive Heart Failure (CHF) and your symptoms return, make an appointment with your physician Weigh yourself daily. Notify your physician if you have a weight gain of two or more pounds in one day or five or more pounds in one week. If you experience any difficulty breathing, please call 911 BLEEDING: Although the risk of bleeding is minimal, it can happen. If you have any bleeding from the site, apply firm pressure above the puncture site for 10-15 minutes. If the bleeding does not stop, continue manual pressure and call 911 Contact your physician if: You develop a fever greater than 101 degrees Fahrenheit Your site becomes reddened or has any drainage You have an increase in pain or burning at the site or if a large knot forms at the site. If you experience chest pain, shortness of breath, dizziness, or extreme tiredness, stop the activity and rest. Please notify your physicians office if you experience any of these symptoms and they are not relieved by rest please call 911! - Diet and Activity Diet: low fat, low cholesterol, low salt diet - Hospital Course Hospital course: Mr. Centeno is a 62 year old male presented with STEMI with peak troponin greater than 50. Status post emergent left heart catheterization with PCI and drug-eluting stent to right PDA 100% lesion; has nonobstructive proximal LAD 25 % and mid LAD 25% lesions. Echo shows EF preserved at 60%, mild diastolic dysfunction, mild MR, no pulmonary hypertension. During hospital stay remained chest pain-free. Patient continued to experience shortness of breath at rest with exertion. Pulmonology consult and treated for acute COPD exacerbation with steroids, inhalers, and antibiotics. Patient prepping for discharge home today in stable condition. Shortness of breath has improved. Education provided regarding post ME and catheterization site care. Patient instructed to not discontinue aspirin and Brilinta for at least one year unless directed by cardiology. Patient verbalized understanding and agreed with plan. All questions answered. Time spent discussing smoking cessation with patient: 3 to 10 minutes - Time Spent with Patient Total time spent providing and/or coordinating discharge services: Greater than 30 minutes Physical Examination Vital Signs, Last 4 Hours Temp Pulse Resp BP Pulse Ox 09/12/17 08:24 95 09/12/17 08:17 98.9 F 96 16 132/78 95 General: Conversant, No Apparent Distress HEENT: Atraumatic, Normocephaly, Mucus Membranes Moist Neck: No JVD, Normal carotid pulses Cardiac: Reg Rate and Rhythm, Normal S1 and S2, No Murmur Lungs: Normal Breath Sounds, Other (Scattered rhonchi throughout, however improved) Neuro: Alert and responsive, No focal deficits noted Abdomen: Soft, Non-Tender Skin: No rashes noted on visualized skin Musculoskeletal: No Chest Wall Tenderness Extremities: No Clubbing, No Cyanosis, No Edema, Normal Pulses - VTE Reasons for not Prescribing Prophylaxis: Not indicated-Anticoagulated or INR therapeutic Documentation of Mechanical Device: Intermittent pneumatic compression device
--- NOTE | 2017-09-12 13:24 | Pulmonology Progress Note ---
Date of Encounter: 09/12/17 Time of Encounter: 11:30 Assessment and Plan (1) Acute exacerbation of chronic obstructive pulmonary disease (COPD) Status: Acute Patient presented with STEMI s/p PCI looks like he had developed COPD exacerbation before he got admitted , patient is doing well on steroids and antibiotics . To send home on Albuterol , Spiriva total 5 day course of Azithromycin and 5 day steroid burst . Patient has a follow up in Pulmonology in October. Subjective Principal diagnosis: STEMI Interval history: Patient is doing lot better after steroids and antibiotics he is going home today Objective PUL Vital signs: Last Vital Signs Temp 98.9 F 09/12/17 08:17 Pulse 95 09/12/17 08:24 Resp 16 09/12/17 08:17 BP 132/78 09/12/17 08:17 Pulse Ox 95 09/12/17 08:17 Auscultation: bilateral: wheezes (very mild scattered wheezes) Results - Laboratory Findings CBC and BMP: 09/10/17 03:24 09/10/17 03:24 PT/INR, D-dimer PT 11.4 Seconds (9.4-12.1) 09/09/17 13:43 Abnormal lab findings: Abnormal lab results WBC 16.1 K/mcL (4.3-11.1) H 09/10/17 03:24 Neutrophils # 13.1 K/mcL (1.6-8.9) H 09/10/17 03:24 Sodium 131 mEq/L (136-145) L 09/10/17 03:24 Chloride 97 mEq/L (98-109) L 09/10/17 03:24 Glucose 111 mg/dL (70-99) H 09/10/17 03:24 Calculated Osmolality 273 (280-300) L 09/10/17 03:24 AST 275 Units/L (5-34) H 09/10/17 03:24 Troponin I > 50.00 ng/mL (0-0.03) H* 09/10/17 10:59 Albumin 3.4 g/dL (3.5-5.0) L 09/10/17 03:24 Albumin/Globulin Ratio 1.0 (1.1-2.2) L 09/10/17 03:24 Cholesterol 205 mg/dL (< 200) H 09/09/17 13:43 LDL Cholesterol, Calc 128 mg/dL (0-99) H 09/09/17 13:43 - Clinical Findings Intake & Output: Intake & Output 09/11/17 09/12/17 09/12/17 23:59 07:59 15:59 Intake Total 240 / 240 0 / 0 480 / 480 Output Total 900 / 900 375 / 375 450 / 450 Balance -660 / -660 -375 / -375 30 Weight 86.8 kg - VTE Reasons for not Prescribing Prophylaxis: Not indicated-Anticoagulated or INR therapeutic Documentation of Mechanical Device: Intermittent pneumatic compression device Consult Discharge Plan - Plan Instructions: Metoprolol (By mouth), Nitroglycerin (By mouth), Albuterol (By breathing), Prednisone (By mouth), Azithromycin (By mouth), Atorvastatin (By mouth), Tiotropium (By breathing), Ticagrelor (By mouth), Myocardial Infarction (DC), How to Stop Smoking (DC) Referrals: Martha Benton DO [Resident] - 09/17/17 3:00 pm Tereso Beckman CNP [Advanced Practice Nurse] - (OFFICE WILL CALL PATIENT AT HOME WITH FOLLOW UP APPOINTMENT) Olman Mann MD [Partnered Physician] - (OFFICE WILL CALL PATIENT AT HOME WITH FOLLOW UP APPOINTMENT ) Prescriptions: Albuterol Sulfate [Albuterol Inhaler] 0 puff IH Q4HR PRN #1 hfa.aer.ad PRN Reason: Shortness Of Breath Nitroglycerin 0.4 mg SL Q5MIN PRN #30 tab.subl PRN Reason: Chest Pain Atorvastatin [Lipitor] 40 mg PO HS #30 tablet Azithromycin [Zithromax] 250 mg PO Q24H #3 tablet Metoprolol [Lopressor] 12.5 mg PO BID #60 tablet predniSONE [PredniSONE] 40 mg PO DAILY #3 tablet Ticagrelor [Brilinta] 90 mg PO BID #60 tablet Tiotropium [Spiriva] 18 mcg IH DAILYR #1 inh
[2017-09-12] MEDS ORDERED: Azithromycin 250 MG TABLET PO SCH (16:30)
== END 2017-09-12 12:33 | disposition home or self-care (01) | DRG 174 ==
LOC: ICNU 13:39 → EMEROO 13:39 → ICNU 14:25 → 2NNU 09-10 22:43
PROVIDERS: ADMIT Internal Medicine Cardiovascular Disease; ATTEND Internal Medicine Cardiovascular Disease